=== PATIENT | male | born 1935 | race Caucasian/White ===

== ENCOUNTER 2017-08-19 08:31 | Inpatient (IN) | payer MEDICARE, MEDICAID ==
[2017-08-19 09:34] LABS: Bilirubin Negative (Negative); Blood, Urine Negative (Negative); Clarity CLEAR (Clear); Glucose, Urine (Dipstick) Negative (Negative); Leukocyte Negative (Negative); Nitrite Negative (Negative); Protein, Urine (Dipstick) Trace mg/dL (Neg-Trace); Specific Gravity, Urine 1.011 (1.002-1.036)
[2017-08-19 09:35] LABS: #Lymphocytes 0.6 thou/uL (1.20-3.40); #Neutrophils 9.9 thou/uL (1.40-6.50); %Eosinophils 0.3 % (0.0-10.0); %Lymphocytes 5.4 % (21.0-51.0); %Monocytes 8.9 % (0.0-10.0); %Neutrophils 85.3 % (42.0-75.0); Mean Corpuscular Hemoglobin 27.3 pg (27.0-31.0); Mean Corpuscular Volume 85.4 fl (80.0-94.0); Mean Platelet Volume 6.7 fL (7.4-10.4); Platelet Count 196 thou/uL (130-400); RBC Distribution Width 14.1 % (11.5-14.5); Red Blood Cell (RBC) Count 4.75 mill/uL (4.70-6.10); White Blood Cell (WBC) Count 11.6 thou/uL (4.8-10.8)
--- NOTE | 2017-08-19 09:51 | RAD ---
FRONTAL VIEW CHEST: Comparison: None. Indication: Fever. FINDINGS: There is multifocal patchy alveolar opacity predominately perihilar in distribution. No obvious effus ion. No discrete pneumothorax. Cardiac silhouette is accentuated with portable technique. IMPRESSION: Bilateral patchy parenchymal opacities may be on the basis of edema or atypical pneumonia. Correlate clinically. Recommend imaging follow up to complete resolution. POS: [facility]
[2017-08-19 09:58] LABS: ALT (SGPT) Less than 7 U/L (8-55); AST (SGOT) 11 U/L (5-34); Albumin 3.7 g/dL (3.4-4.8); Alkaline Phosphatase 108 U/L (40-150); Anion Gap 15 mmol/L (10-20); BUN (Urea Nitrogen) 22 mg/dL (8.4-25.7); Bilirubin, Total 0.3 mg/dL (0.2-1.2); CK (CPK) 128 U/L (30-200); Calc. Creatinine Clearance 0 mL/min (70-130); Calcium 9.9 mg/dL (7.8-10.44); Carbon Dioxide 25 mmol/L (23-31); Chloride 103 mmol/L (98-107); Estimated GFR-MDRD 89; Globulin 3.1 g/dL (2.4-3.5); Lipase 8 U/L (8-78); Potassium 4.1 mmol/L (3.5-5.1); Protein, Total 6.8 g/dL (5.8-8.1); Sodium 139 mmol/L (136-145)
[2017-08-19 10:01] LABS: Glucose 58 mg/dL (83-110)
[2017-08-19] MEDS ORDERED: Ondansetron ODT 4 MG TAB SL PRN (15:18)
[2017-08-19] MEDS ORDERED: Ondansetron HCl/PF 4 MG/2 ML Vial IVP PRN (15:18)
[2017-08-19] MEDS ORDERED: Acetaminophen 325 MG TAB PO PRN ×2 (15:18→18:47)
[2017-08-19] MEDS ORDERED: D5 1/2 NS w/20 mEq KCL 1,000 ML IV SCH (15:30)
[2017-08-19] MEDS ORDERED: Dextrose 50% Abboject 50 ML SYRINGE IVP PRN (18:43)
[2017-08-19] MEDS ORDERED: Dextrose 5% in Water 1,000 ML IV PRN (18:43)
[2017-08-19] MEDS ORDERED: Insulin Regular 300 UNITS/3 ML VIAL SC PRN (18:43)
[2017-08-19] MEDS ORDERED: Furosemide 20 MG/2 ML VIAL SLOW IVP SCH (18:45)
[2017-08-19] MEDS ORDERED: Polyethylene Glycol 3350 17 GM Packet PO PRN (18:53)
[2017-08-19] MEDS: Piperacillin/Tazobactam 3.375 GM in Sodium Chloride 0.9% 100 ML IVPB SCH (20:04)
[2017-08-19] MEDS: Ascorbic Acid 500 mg Chewable Tablet PO SCH (20:05)
[2017-08-19] MEDS: Famotidine 20 MG TAB PO SCH (20:05)
[2017-08-19] MEDS: traZODone HCl 50 MG TAB PO SCH (20:06)
[2017-08-19] MEDS: Temazepam 15 MG CAP PO SCH (20:06)
[2017-08-19] MEDS: Metoprolol Tartrate 25 MG TAB PO SCH (20:06)
[2017-08-19] MEDS ORDERED: Prevnar 13-Val Conj/PF 0.5 ML SYRINGE IM ONE (21:00)
[2017-08-19] MEDS ORDERED: Vancomycin HCl 1 GM in Premix Bag 1 BAG IVPB SCH (23:00)
--- NOTE | 2017-08-19 23:53 | HP ---
DATE OF ADMISSION: 08/19/2017 CHIEF COMPLAINT: Change in mental status and fever. HISTORY OF PRESENT ILLNESS: Mr. Castillo is an 82-year-old male with past medical history of coronary artery disease, hypertension, diabetes, dementia, who was found to have altered mental stat us with hypoglycemia and blood sugar was in 50s at the retirement and he also developed temperature of 101 at the retirement. He did not have any fever yesterday and just developed today, and blood pressure dropped, and he was more confused than usual. He did not have any chest pain or any shortn ess of breath. No nausea or vomiting. Because of change in mental status, fever and hypoglycemia, t he patient was sent to the hospital. In the ER, the patient was evaluated and found to have possible bilateral pneumonia, given antibiotic, Levaquin and vancomycin and admitted for further evaluation. PAST MEDICAL HISTORY: 1. Hypertension. 2. Dementia. 3. Diabetes mellitus. 4. Coronary artery disease. 5. Unstable gait. 6. Insomnia. 7. Cellulitis of the feet. 8. Gastroesophageal reflux disease. 9. Protein calorie malnutrition. 10. Muscle weakness. PAST SURGICAL HISTORY: Nothing significant. CURRENT MEDICATIONS: The patient is on amlodipine 5 mg daily, Arginaid daily, vitamin C daily, aspir in 325 mg daily, Levemir insulin 50 units daily and also sliding scale, lisinopril 40 mg daily, Sara tin 10 mg daily, metformin 850 b.i.d., metoprolol 25 b.i.d., MiraLax 17 grams daily, Restoril 15 mg a t bedtime, trazodone 50 mg at bedtime, zinc sulfate daily. ALLERGIES: No known drug allergies. FAMILY HISTORY: Nothing of interest. SOCIAL HISTORY: Patient is a resident of [facility]. No history of smoking. No history of alcohol intake. REVIEW OF SYSTEMS: Unable to obtain, patient is confused, unable to give proper history. PHYSICAL EXAMINATION: VITAL SIGNS: Temperature 102.7, pulse 116, respiration 20, blood pressure 140/60. HEENT: Head is normocephalic, atraumatic. Pupils equal and reactive to light. Nasopharynx is pink and moist. NECK: Supple. No JVD. LUNGS: Bilateral air entry present. Crackles present as well as rhonchi present bilaterally. CARDIAC: S1, S2 regular. ABDOMEN: Soft, no distention, no tenderness. Normal bowel sounds. RECTAL: Deferred. CENTRAL NERVOUS SYSTEM: No focal deficit. EXTREMITIES: Ulcer present in medial part of the big toe on the right foot. LABORATORY DATA AND X-RAY FINDINGS: CBC shows WBC 11.6, hemoglobin 13, hematocrit 40, platelets 196. Metabolic panel shows sodium 139, potassium 4, chloride 103, CO2 of 25, urea nitrogen 20, creatinin e 0.9, glucose 58. CK was not done. BNP was 237. Chest x-ray showed patchy parenchymal opacities, bilateral. EKG not done. ASSESSMENT: 1. Possible pneumonia, bilateral. 2. Hypoglycemia, symptomatic. 3. Encephalopathy, metabolic. 4. Hypertension 5. Diabetes mellitus. 6. Dementia. 7. Coronary artery disease. PLAN: 1. Vital signs q.4 hours. 2. Activity as tolerated. 3. Allergies: No known drug allergies. 4. Zosyn 3.375 grams IV piggyback q.6 hours. 5. Continue retirement medicines. 6. Accu-Cheks a.c. and bedtime. 7. Sliding scale mild with regular insulin.
[2017-08-20 01:09] LABS: Troponin I 0.177 ng/mL (< 0.028)
[2017-08-20 03:06] LABS: #Eosinphils 0.1 thou/uL (0.0-0.7); #Lymphocytes 1.1 thou/uL (1.20-3.40); #Monocytes 0.9 thou/uL (0.11-0.59); #Neutrophils 6.5 thou/uL (1.40-6.50); %Basophils 0.3 % (0.0-1.0); %Eosinophils 0.8 % (0.0-10.0); %Lymphocytes 12.8 % (21.0-51.0); %Monocytes 10.2 % (0.0-10.0); %Neutrophils 75.9 % (42.0-75.0); Hemoglobin 10.8 g/dL (14.0-18.0); Mean Corpuscular HGB CONC 31.9 g/dL (32.0-36.0); Mean Corpuscular Hemoglobin 27.3 pg (27.0-31.0); Mean Corpuscular Volume 85.6 fl (80.0-94.0); Mean Platelet Volume 6.5 fL (7.4-10.4); Platelet Count 162 thou/uL (130-400); Red Blood Cell (RBC) Count 3.95 mill/uL (4.70-6.10); White Blood Cell (WBC) Count 8.5 thou/uL (4.8-10.8)
[2017-08-20] MEDS: Piperacillin/Tazobactam 3.375 GM in Sodium Chloride 0.9% 100 ML IVPB SCH ×4 (03:15→20:38)
[2017-08-20 03:31] LABS: Troponin I 0.144 ng/mL (< 0.028)
[2017-08-20 03:40] LABS: Hemoglobin A1c 6.9 % (4.0-6.0)
[2017-08-20 03:54] LABS: ALT (SGPT) Less than 7 U/L (8-55); AST (SGOT) 10 U/L (5-34); Albumin 3.3 g/dL (3.4-4.8); Alkaline Phosphatase 90 U/L (40-150); Anion Gap 11 mmol/L (10-20); BUN (Urea Nitrogen) 18 mg/dL (8.4-25.7); Bilirubin, Total 0.4 mg/dL (0.2-1.2); Calc. Creatinine Clearance 55 mL/min (70-130); Calcium 9.6 mg/dL (7.8-10.44); Carbon Dioxide 28 mmol/L (23-31); Chloride 102 mmol/L (98-107); Estimated GFR-MDRD 70; Globulin 2.7 g/dL (2.4-3.5); Glucose 321 mg/dL (83-110); Potassium 4.1 mmol/L (3.5-5.1); Sodium 137 mmol/L (136-145)
--- NOTE | 2017-08-20 08:59 | RAD ---
TWO VIEWS OF THE CHEST: DATE: 08/20/17. COMPARISON: 08/19/17. History Pneumonia. FINDINGS: Mild perihilar and bibasilar interstitial prominence is noted. There is no pneumothorax or pleural f luid. There is no lobar consolidation or alveolar edema. On the lateral examination, bibasilar inte rstitial opacity is noted posteriorly. IMPRESSION: Bilateral perihilar and bilateral lower lobe interstitial opacities. These findings may signify impr oving interstitial edema. Interstitial inflammatory/infectious pneumonitis is a possibility as well. Close followup advised following treatment. POS: [facility]
[2017-08-20] MEDS ORDERED: ASCORBIC ACID PO SCH (09:00)
[2017-08-20] MEDS ORDERED: VITAMIN E PO SCH (09:00)
[2017-08-20] MEDS ORDERED: ARGININE PO SCH (09:00)
[2017-08-20] MEDS: Insulin Detemir 100 UNITS/ML 50 UNITS in Pre-Filled Syringe 1 EACH SC SCH (09:38)
[2017-08-20] MEDS: Ascorbic Acid 500 mg Chewable Tablet PO SCH ×2 (09:44→20:37)
[2017-08-20] MEDS: Aspirin 325 MG TAB PO SCH (09:44)
[2017-08-20] MEDS: Metoprolol Tartrate 25 MG TAB PO SCH ×2 (09:45→20:37)
[2017-08-20] MEDS: Loratadine 10 MG TAB PO SCH (09:45)
[2017-08-20] MEDS: Cyanocobalamin (Vitamin B-12) 1,000 MCG TAB PO SCH (09:45)
[2017-08-20] MEDS: Amlodipine 5 MG TAB PO SCH (09:45)
[2017-08-20] MEDS: Lisinopril 20 MG TAB PO SCH (09:46)
[2017-08-20] MEDS: Famotidine 20 MG TAB PO SCH ×2 (09:46→20:37)
[2017-08-20] MEDS: Zinc Sulfate 220 MG CAP PO SCH (09:47)
[2017-08-20] MEDS: Insulin Regular 300 UNITS/3 ML VIAL SC PRN ×2 (10:22→13:47)
[2017-08-20 12:46] VITALS: BMI 21.3
[2017-08-20] MEDS: traZODone HCl 50 MG TAB PO SCH (20:37)
[2017-08-20] MEDS: Temazepam 15 MG CAP PO SCH (20:37)
[2017-08-20] MEDS ORDERED: Vancomycin HCl 1 GM in Premix Bag 1 BAG IVPB SCH (23:00)
[2017-08-21] MEDS: Piperacillin/Tazobactam 3.375 GM in Sodium Chloride 0.9% 100 ML IVPB SCH ×4 (00:58→22:06)
--- NOTE | 2017-08-21 08:09 | EKG ---
Test Reason : Blood Pressure : / mmHG Vent. Rate : 072 BPM Atrial Rate : 072 BPM P-R Int : 140 ms QRS Dur : 088 ms QT Int : 400 ms P-R-T Axes : -02 036 043 degrees QTc Int : 438 ms Normal sinus rhythm Normal ECG No previous ECGs available Confirmed by DR. David NAVARRO ([id number]) on 08/21/2017 8:09:37 AM Referred By: JANETT Confirmed By:DR. David NAVARRO
[2017-08-21] MEDS: Aspirin 325 MG TAB PO SCH (08:59)
[2017-08-21] MEDS: Zinc Sulfate 220 MG CAP PO SCH (08:59)
[2017-08-21] MEDS: Ascorbic Acid 500 mg Chewable Tablet PO SCH ×2 (08:59→22:07)
[2017-08-21] MEDS: Lisinopril 20 MG TAB PO SCH (08:59)
[2017-08-21] MEDS: Metoprolol Tartrate 25 MG TAB PO SCH ×2 (09:00→22:07)
[2017-08-21] MEDS: Cyanocobalamin (Vitamin B-12) 1,000 MCG TAB PO SCH (09:00)
[2017-08-21] MEDS: Loratadine 10 MG TAB PO SCH (09:00)
[2017-08-21] MEDS: Famotidine 20 MG TAB PO SCH ×2 (09:02→22:07)
[2017-08-21] MEDS: Amlodipine 5 MG TAB PO SCH (09:02)
[2017-08-21] MEDS: Insulin Detemir 100 UNITS/ML 50 UNITS in Pre-Filled Syringe 1 EACH SC SCH (09:03)
--- NOTE | 2017-08-21 11:32 | CT ---
CT THORAX WITH CONTRAST: DATE: 08/21/17. TIME: 8:28 a.m. HISTORY: An 82-year-old male with pneumonia. COMPARISON: No prior chest CTs. TECHNIQUE: IV iodinated contrast media: 100 mL of Isovue-370. FINDINGS: There are bilaterally symmetrical interstitial-alveolar infiltrates throughout the posterior aspects of the bilateral lower lobes, including superior segments and posterobasilar segments. There is no p leural effusion or pneumothorax. No thoracic aortic aneurysm or dissection. No mediastinal or hilar lymphadenopathy. Heavy atherosclerotic calcification of left anterior descending and left main rachel nary arteries, and to a lesser degree the LCX and RCA. No pericardial effusion. IMPRESSION: 1. Bilateral lower lobe infiltrates. 2. Coronary atherosclerotic disease. AKBAR Pritchett POS: [facility]
[2017-08-21] MEDS ORDERED: Insulin Detemir 100 UNITS/ML 30 UNITS in Pre-Filled Syringe SC SCH (14:30)
[2017-08-21] MEDS: Insulin Regular 300 UNITS/3 ML VIAL SC PRN (17:37)
[2017-08-21] MEDS: Temazepam 15 MG CAP PO SCH (22:08)
[2017-08-21] MEDS: traZODone HCl 50 MG TAB PO SCH (22:08)
[2017-08-21 22:24] LABS: Vancomycin, Trough 6.9 ug/mL
[2017-08-21] MEDS: Vancomycin HCl 750 MG in Sodium Chloride 0.9% 250 ML 250 ML IVPB SCH (23:48)
[2017-08-22] MEDS: Piperacillin/Tazobactam 3.375 GM in Sodium Chloride 0.9% 100 ML IVPB SCH ×4 (02:27→20:59)
[2017-08-22] MEDS: Zinc Sulfate 220 MG CAP PO SCH (10:22)
[2017-08-22] MEDS: Loratadine 10 MG TAB PO SCH (10:23)
[2017-08-22] MEDS: Aspirin 325 MG TAB PO SCH (10:23)
[2017-08-22] MEDS: Lisinopril 20 MG TAB PO SCH (10:23)
[2017-08-22] MEDS: Famotidine 20 MG TAB PO SCH ×2 (10:23→21:00)
[2017-08-22] MEDS: Amlodipine 5 MG TAB PO SCH (10:23)
[2017-08-22] MEDS: Metoprolol Tartrate 25 MG TAB PO SCH ×2 (10:23→21:00)
[2017-08-22] MEDS: Cyanocobalamin (Vitamin B-12) 1,000 MCG TAB PO SCH (10:24)
[2017-08-22] MEDS: Ascorbic Acid 500 mg Chewable Tablet PO SCH ×2 (10:25→21:00)
[2017-08-22] MEDS: Insulin Detemir 100 UNITS/ML 30 UNITS in Pre-Filled Syringe SC SCH ×2 (10:26→12:34)
[2017-08-22] MEDS: Vancomycin HCl 750 MG in Sodium Chloride 0.9% 250 ML 250 ML IVPB SCH ×2 (12:17→23:35)
[2017-08-22] MEDS: Insulin Regular 300 UNITS/3 ML VIAL SC PRN (17:26)
[2017-08-22] MEDS: Temazepam 15 MG CAP PO SCH (21:00)
[2017-08-22] MEDS: traZODone HCl 50 MG TAB PO SCH (21:00)
[2017-08-23] MEDS: Piperacillin/Tazobactam 3.375 GM in Sodium Chloride 0.9% 100 ML IVPB SCH ×4 (01:55→20:38)
[2017-08-23 05:55] LABS: Anion Gap 12 mmol/L (10-20); BUN (Urea Nitrogen) 11 mg/dL (8.4-25.7); Calc. Creatinine Clearance 62 mL/min (70-130); Calcium 9.8 mg/dL (7.8-10.44); Carbon Dioxide 27 mmol/L (23-31); Chloride 104 mmol/L (98-107); Estimated GFR-MDRD 90; Potassium 3.5 mmol/L (3.5-5.1); Sodium 139 mmol/L (136-145)
[2017-08-23 06:05] LABS: Glucose 41 mg/dL (83-110)
[2017-08-23 06:08] LABS: Band 4 % (5-11); Eosinophils 6 % (0-10); Hemoglobin 11.4 g/dL (14.0-18.0); Lymphocytes 17 % (21-51); MDiff Complete? YES; Mean Corpuscular HGB CONC 32.1 g/dL (32.0-36.0); Mean Corpuscular Hemoglobin 28.1 pg (27.0-31.0); Mean Corpuscular Volume 87.6 fl (80.0-94.0); Mean Platelet Volume 7.1 fL (7.4-10.4); Monocytes 16 % (0-10); Neutrophil 57 % (42-75); Platelet Count 204 thou/uL (130-400); RBC Distribution Width 13.9 % (11.5-14.5); Red Blood Cell (RBC) Count 4.07 mill/uL (4.70-6.10); White Blood Cell (WBC) Count 5.5 thou/uL (4.8-10.8)
[2017-08-23] MEDS ORDERED: Insulin Detemir 100 UNITS/ML 20 UNITS in Pre-Filled Syringe 1 EACH SC SCH (09:00)
[2017-08-23] MEDS: Metoprolol Tartrate 25 MG TAB PO SCH ×2 (09:17→20:46)
[2017-08-23] MEDS: Amlodipine 5 MG TAB PO SCH (09:17)
[2017-08-23] MEDS: Loratadine 10 MG TAB PO SCH (09:17)
[2017-08-23] MEDS: Cyanocobalamin (Vitamin B-12) 1,000 MCG TAB PO SCH (09:17)
[2017-08-23] MEDS: Famotidine 20 MG TAB PO SCH ×2 (09:17→20:46)
[2017-08-23] MEDS: Aspirin 325 MG TAB PO SCH (09:18)
[2017-08-23] MEDS: Ascorbic Acid 500 mg Chewable Tablet PO SCH ×2 (09:18→20:45)
[2017-08-23] MEDS: Lisinopril 20 MG TAB PO SCH (09:18)
[2017-08-23] MEDS: Zinc Sulfate 220 MG CAP PO SCH (09:50)
--- NOTE | 2017-08-23 10:22 | PQF ---
CLINICAL DOCUMENTATION IMPROVEMENT CLARIFICATION FORM: ICD-10 Updated PLEASE DO AN ADDENDUM TO THE PROGRESS NOTE WITH ANY DOCUMENTATION UPDATES OR ADDITIONS AND CARRY THROUGH TO DC SUMMARY. THANK YOU. DATE: 08/23 ATTN: DR. Jeannette ROWLAND Please exercise your independent, professional judgment in responding to the clarification form. Clinical indicators are provided on the bottom of this form for your review. Please check appropriate box(s): [ ] Aspiration Pneumonia [ ] Empirically treating Gram Negative Pneumonia [ ] Empirically treating Anaerobic Pneumonia [ ] Pneumonia secondary to (specify organism / underlying disease) [ y] Other diagnosis __health care acquired pneumonia [ y] Unable to determine For continuity of documentation, please document condition throughout progress notes and discharge summary. Thank You. CLINICAL INDICATORS - SIGNS / SYMPTOMS / LABS ER PRESENTATION 08/19: AMS T: 102.7 RR: 22 ER PHYSICIAN DOCUMENTATION: HEALTHCARE ACQUIRED MULTIFOCAL PNEUMONIA PHYSICIAN H&P DOCUMENTATION 08/19: ASSESSMENT: 1. POSSIBLE PNEUMONIA, BILATERAL PROGRESS NOTES 08/20 - 4: ASSESSMENT: 1. PNEUMONIA, BILATERAL RISK FACTORS: HALF-WAY PATIENT DEMENTIA TREATMENTS: IV ANTIBIOTICS (ZOSYN & VANCOMYCIN 08/19 - PRESENT) IVF (2L NS GIVEN IN ER, 08/19) THANK YOU! Sadaf (This form is maintained as a part of the permanent medical record) 2015 [employer]. All Rights Reserved Sadaf Traore RN, BSN [email or web address] Office: [phone] [facility]ITAL[facility]
--- NOTE | 2017-08-23 10:33 | PQF ---
CLINICAL DOCUMENTATION IMPROVEMENT CLARIFICATION FORM: ICD-10 Updated PLEASE DO AN ADDENDUM TO THE PROGRESS NOTE WITH ANY DOCUMENTATION UPDATES OR ADDITIONS AND CARRY THROUGH TO DC SUMMARY. THANK YOU. DATE: 08/23 ATTN: DR. Jeannette ROWLAND Please exercise your independent, professional judgment in responding to the clarification form. Clinical indicators are provided on the bottom of this form for your review. Please check appropriate box(es): [ ] Sepsis due to: (PNA, UTI, gangrenous gall bladder, etc.) [ ] Severe sepsis with acute organ dysfunction of: (Examples: respiratory failure, encephalopathy, acute kidney failure, other) [ ] Localized infection without sepsis [ y ] Other diagnosis __no sepsis [ ] Unable to determine CLINICAL INDICATORS - SIGNS / SYMPTOMS / LABS ER PRESENTATION 08/19: ALTERED MENTAL STATUS T: 102.7 RR: 22 HR: 116 WBC: 11.6 ER PHYSICIAN DOCUMENTATION 08/19: PATIENT APPEARS TO HAVE SEPSIS ER PHYSICIAN DIAGNOSES: SEPSIS, HCA MULTIFOCAL PNEUMONIA PHYSICIAN H&P DOCUMENTATION 08/19: ASSESSMENT: 3. METABOLIC ENCEPHALOPATHY RISK FACTORS: BILATERAL PNEUMONIA METABOLIC ENCEPHALOPATHY TREATMENTS: TELEMETRY MONITORING (08/19 - PRESENT) IV ANTIBIOTICS (ZOSYN & VANCOMYCIN 08/19 - PRESENT) SERIAL LABS IVF (2L NS IN ER, 08/19) THANK YOU! Sadaf (This form is maintained as a part of the permanent medical record) 2014 [employer]. All Rights Reserved Sadaf Traore, RN, BSN [email or web address] Office: [phone] [facility]
[2017-08-23 10:51] LABS: Vancomycin, Trough 10.3 ug/mL
[2017-08-23] MEDS: Vancomycin HCl 750 MG in Sodium Chloride 0.9% 250 ML 250 ML IVPB SCH (11:45)
[2017-08-23] MEDS ORDERED: Vancomycin HCl 1 GM in Premix Bag 1 BAG IVPB SCH (12:00)
[2017-08-23] MEDS: Insulin Regular 300 UNITS/3 ML VIAL SC PRN ×2 (13:25→18:16)
[2017-08-23] MEDS: traZODone HCl 50 MG TAB PO SCH (20:45)
[2017-08-23] MEDS: Cefdinir 300 MG CAP PO SCH (20:45)
[2017-08-23] MEDS: Temazepam 15 MG CAP PO SCH (20:46)
[2017-08-24 05:09] VITALS: BP 152/67
[2017-08-24] MEDS ORDERED: metFORMIN 500 MG TAB PO SCH (08:00)
[2017-08-24] MEDS: Aspirin 325 MG TAB PO SCH (09:12)
[2017-08-24] MEDS: Loratadine 10 MG TAB PO SCH (09:12)
[2017-08-24] MEDS: Lisinopril 20 MG TAB PO SCH (09:12)
[2017-08-24] MEDS: Ascorbic Acid 500 mg Chewable Tablet PO SCH (09:12)
[2017-08-24] MEDS: Zinc Sulfate 220 MG CAP PO SCH (09:12)
[2017-08-24] MEDS: Cefdinir 300 MG CAP PO SCH (09:12)
[2017-08-24] MEDS: Cyanocobalamin (Vitamin B-12) 1,000 MCG TAB PO SCH (09:12)
[2017-08-24] MEDS: Famotidine 20 MG TAB PO SCH (09:13)
[2017-08-24] MEDS: Amlodipine 5 MG TAB PO SCH (09:13)
[2017-08-24] MEDS: Metoprolol Tartrate 25 MG TAB PO SCH (09:15)
[2017-08-24 09:21] VITALS: TEMP 98.3
--- NOTE | 2017-08-25 13:12 | DIS ---
DATE OF ADMISSION: 08/19/2017 DATE OF DISCHARGE: 08/24/2017 ADMITTING DIAGNOSES: 1. Possible pneumonia, bilateral. 2. Hypoglycemia, symptomatic. 3. Metabolic encephalopathy. 4. Hypertension. 5. Diabetes mellitus. 6. Dementia. 7. Coronary artery disease. FINAL DIAGNOSES: 1. Pneumonia bilateral, improved. 2. Symptomatic hypoglycemia, improved. 3. Metabolic encephalopathy, improved. 4. Hypertension. 5. Diabetes mellitus. 6. Dementia. 7. Coronary artery disease. BRIEF SUMMARY OF HOSPITAL COURSE: Mr. Castillo is an 82-year-old male with past medical hist ory of dementia, hypertension, diabetes mellitus and was found to have hypoglycemia. The patient was also found to have infiltrates in both lungs. He had temperature of 101, suspected to have pneumoni a. The patient was started on IV antibiotics with Zosyn and his blood sugars were monitored. Initia lly, he was hypoglycemic, but later that day improved. WBC count which was 11.6 on admission came do wn to 5.5. The patient did have episodes of hypoglycemia. His insulin dose, Levemir dose was marked ly reduced after which his blood sugars improved. He was eating very well and was getting agitated s ometimes otherwise he stayed okay. In view of improvement, he was discharged. At the time of discha rge, he was stable. His vital signs stable. Lungs clear. Heart sounds regular. Abdomen is soft, n ontender. Bowel sounds present. DISCHARGE MEDICATIONS: Include: Zinc sulfate 220 mg daily, vitamin B12 daily, vitamin C daily b.i.d ., Tylenol p.r.n., trazodone 50 mg at bedtime, Restoril 15 mg at bedtime, ranitidine 150 b.i.d., Virgie Lax 17 grams daily, metoprolol 25 mg b.i.d., metformin 1000 mg b.i.d., lisinopril 40 mg daily, Levemi r insulin is completely stopped, amlodipine 5 mg daily, aspirin 325 mg daily, and Omnicef 300 b.i.d. for 10 days. FOLLOWUP: The patient will be followed up at skilled nursing.
== END 2017-08-24 11:53 | DRG 193 ==
LOC: ERS 08:31 → ERHOLD 11:45 → 2NO 13:44
PROVIDERS: ADMIT Internal Medicine; ATTEND Internal Medicine
DX: J18.9 Pneumonia, unspecified organism (principal); G93.41 Metabolic encephalopathy; E11.649 Type 2 diabetes mellitus with hypoglycemia without coma; F03.90 Unspecified dementia, unspecified severity, without behavioral disturbance, psychotic disturbance, mood disturbance, and anxiety; I10 Essential (primary) hypertension; K21.9 Gastro-esophageal reflux disease without esophagitis; I25.10 Atherosclerotic heart disease of native coronary artery without angina pectoris; Z79.82 Long term (current) use of aspirin; Z79.4 Long term (current) use of insulin; Z79.899 Other long term (current) drug therapy; Y95 Nosocomial condition
CPT/HCPCS: 36415; 36416; 51701; 71045; 71046; 71260; 80048; 80053; 80202; 81003; 82550; 83036; 83605; 83690; 83880; 84484; 85025; 87040; 93005; 93010; 93306; 94640; 96361; 96365; A4216; J1815; J1940; J1956; J2543; J3370; J7050; J7620